=== PATIENT | male | born 1945 | race Caucasian/White ===

== ENCOUNTER 2024-12-01 22:05 | Inpatient (IN) | payer MEDICARE, BC ==
[~2024-12-01] VITALS: Ht 182.9 cm; Wt 74.8 kg
[2024-12-02] MEDS ORDERED: TRIA60LO8 TP (01:31)
[2024-12-02] MEDS ORDERED: ESCI20TA PO (01:31)
[2024-12-02] MEDS ORDERED: SENN8.6T19 PO (01:31)
[2024-12-02] MEDS ORDERED: OLAN5TAB3 PO (01:31)
[2024-12-02] MEDS ORDERED: TAMS-12 PO (01:31)
[2024-12-02] MEDS ORDERED: ACET500C4 PO (01:31)
[2024-12-02] MEDS ORDERED: MELA5TAB25 PO (01:31)
[2024-12-02] MEDS ORDERED: POLY17PO29 PO (01:31)
[2024-12-02 02:07] LABS: BASOPHILS # (AUTO) 0.1 K/uL (0.0-0.2); BASOPHILS % (AUTO) 0.8 % (0.0-2.0); EOSINOPHILS # (AUTO) 0.2 K/uL (0.0-0.7); EOSINOPHILS % (AUTO) 3.3 % (0.0-6.0); HEMATOCRIT 44 % (39-51); HEMOGLOBIN 14.5 g/dL (13.5-17.5); LYMPHOCYTES # (AUTO) 1.9 K/uL (0.8-4.8); LYMPHOCYTES % (AUTO) 25.4 % (20.0-44.0); MEAN CORPUSCULAR HEMOGLOBIN 30 PG (26.0-33.0); MEAN CORPUSCULAR HGB CONC 33 g/dl (31.0-36.0); MEAN CORPUSCULAR VOLUME 89 fL (80-96); MONOCYTES # (AUTO) 0.6 K/uL (0.1-1.30); MONOCYTES % (AUTO) 8.8 % (2.0-12.0); NEUTROPHILS # (AUTO) 4.6 K/uL (1.8-8.9); NEUTROPHILS % (AUTO) 61.7 % (43.0-81.0); PLATELET COUNT (AUTO) 204 K/uL (150-450); RED BLOOD CELL COUNT(AUTO) 4.87 MIL/uL (4.5-6.0); RED CELL DISTRIBUTION WIDTH 13.9 % (11.5-15.0); WHITE BLOOD COUNT (AUTO) 7.4 K/uL (4.3-11.0)
[2024-12-02 02:36] LABS: SERUM AMMONIA 4 umol/L (11-32)
[2024-12-02 02:50] LABS: ALANINE AMINOTRANSFERASE 27 U/L (12-78); ALBUMIN 3.5 g/dL (3.4-5.0); ALKALINE PHOSPHATASE 95 U/L (46-116); ASPARTATE AMINOTRANSFERASE 26 U/L (15-37); BILIRUBIN,TOTAL 0.7 mg/dL (0.2-1.0); CARBON DIOXIDE 23 mmol/L (21-32); CHLORIDE 107 mmol/L (98-107); CREATININE 1.2 mg/dL (0.6-1.3); GLUCOSE 82 mg/dL (74-106); POTASSIUM 3.9 mmol/L (3.5-5.1); SODIUM SERUM 138 mmol/L (136-145); TOTAL PROTEIN, SERUM 7.1 g/dL (6.4-8.2); UREA NITROGEN, BLOOD 25 mg/dL (7-18)
[2024-12-02 02:54] LABS: ACETAMINOPHEN <10 ug/ml (10-30); ALCOHOL, BLOOD < 3 mg/dL (0-10); SALICYLATE < 0.2 mg/dL (2.8-20.0)
[2024-12-02 02:58] LABS: CALCIUM, SERUM 8.9 mg/dL (8.5-10.1)
[2024-12-02 04:02] LABS: APPEARANCE,URINE CLEAR (CLEAR); BILIRUBIN,URINE NEGATIVE (NEGATIVE); BLOOD, URINE NEGATIVE Ery/uL (NEGATIVE); COLOR,URINE YELLOW (YELLOW); KETONES,URINE NEGATIVE (NEGATIVE); LEUKOCYTE ESTERASE ,URINE NEGATIVE (NEGATIVE); NITRITE, URINE NEGATIVE (NEGATIVE); PROTEIN,URINE NEGATIVE (NEGATIVE); UGLUCOSE NEGATIVE (NEGATIVE); UROBILINOGEN,URINE 0.2 EU/dL (0.2)
[2024-12-02 04:14] LABS: AMPHETAMINE, URINE NEGATIVE (NEGATIVE); BARBITURATE, URINE NEGATIVE (NEGATIVE); BENZODIAZEPINE, URINE NEGATIVE (NEGATIVE); CANNABINOID, URINE NEGATIVE (NEGATIVE); COCCAINE, URINE NEGATIVE (NEGATIVE); OPIATE, URINE NEGATIVE (NEGATIVE); PHENCYCLIDINE SCREEN,URINE NEGATIVE (NEGATIVE)
[2024-12-02] MEDS ORDERED: ACET325T53 PO (07:57)
[2024-12-02] MEDS ORDERED: ACET-73 PO (07:57)
[2024-12-02] MEDS ORDERED: MELA5TAB PO (07:57)
[2024-12-02] MEDS ORDERED: MAG HYDROX/AL HYDROX/SIMETH 30 ML UDC PO PRN (09:30)
[2024-12-02] MEDS ORDERED: MAGNESIUM HYDROXIDE 30 ML UDC PO PRN (09:30)
[2024-12-02] MEDS: BLOOD SUGAR DIAGNOSTIC 1 EACH STRIP IN ONE (10:25)
[2024-12-02 16:00] VITALS: BP 116/80; TEMP 98.7; O2SAT 97
[2024-12-02] MEDS: DIVALPROEX SODIUM 125 MG TABLET.DR PO SCH (20:43)
[2024-12-02] MEDS: QUETIAPINE FUMARATE 25 MG TABLET PO SCH (20:43)
[2024-12-02 21:05] VITALS: BP 131/94; TEMP 97.9; O2SAT 100
[2024-12-02] MEDS: ZOLPIDEM TARTRATE 5 MG TABLET PO PRN (22:40)
[2024-12-03] MEDS: QUETIAPINE FUMARATE 25 MG TABLET PO PRN (05:32)
[2024-12-03 08:00] VITALS: BP 91/69; TEMP 98.3; O2SAT 100
[2024-12-03 08:03] LABS: CHOLESTEROL 145 mg/dL (<200); HDL CHOLESTEROL 47 mg/dL (40-60); LDL 87 mg/dL (0-99); TRIGLYCERIDES 70 mg/dL (30-150)
[2024-12-03 08:08] LABS: ALBUMIN 3.7 g/dL (3.4-5.0); CALCIUM, SERUM 9.4 mg/dL (8.5-10.1); CREATININE 1.4 mg/dL (0.6-1.3); POTASSIUM 4.2 mmol/L (3.5-5.1); TOTAL PROTEIN, SERUM 7.3 g/dL (6.4-8.2)
[2024-12-03] MEDS: OLANZAPINE 10 MG VIAL IM STA (08:47)
[2024-12-03 16:00] VITALS: BP 103/73; TEMP 98.1; O2SAT 98
[2024-12-03 20:00] VITALS: BP 107/61; TEMP 97.9; O2SAT 98
[2024-12-03 20:14] VITALS: BP 107/61; TEMP 97.9; O2SAT 98
[2024-12-04] MEDS: ACETAMINOPHEN 325 MG TABLET PO PRN (03:24)
[2024-12-04] MEDS: QUETIAPINE FUMARATE 25 MG TABLET PO SCH (09:48)
[2024-12-04] MEDS: DIVALPROEX SODIUM 125 MG CAP.SPRINK PO SCH (13:53)
[2024-12-04] MEDS ORDERED: DIVALPROEX SODIUM 125 MG TABLET.DR PO SCH (14:00)
[2024-12-04 16:00] VITALS: BP 134/90; TEMP 98; O2SAT 98
[2024-12-04 20:15] VITALS: BP 125/62; TEMP 97.9; O2SAT 97
[2024-12-05 07:09] LABS: BASOPHILS # (AUTO) 0.1 K/uL (0.0-0.2); BASOPHILS % (AUTO) 0.6 % (0.0-2.0); EOSINOPHILS # (AUTO) 0.2 K/uL (0.0-0.7); EOSINOPHILS % (AUTO) 1.9 % (0.0-6.0); HEMATOCRIT 44 % (39-51); HEMOGLOBIN 15.2 g/dL (13.5-17.5); LYMPHOCYTES # (AUTO) 1.4 K/uL (0.8-4.8); LYMPHOCYTES % (AUTO) 18.5 % (20.0-44.0); MEAN CORPUSCULAR HEMOGLOBIN 30 PG (26.0-33.0); MEAN CORPUSCULAR HGB CONC 34 g/dl (31.0-36.0); MEAN CORPUSCULAR VOLUME 87 fL (80-96); MONOCYTES # (AUTO) 0.6 K/uL (0.1-1.30); MONOCYTES % (AUTO) 7.8 % (2.0-12.0); NEUTROPHILS # (AUTO) 5.5 K/uL (1.8-8.9); NEUTROPHILS % (AUTO) 71.2 % (43.0-81.0); PLATELET COUNT (AUTO) 237 K/uL (150-450); RED BLOOD CELL COUNT(AUTO) 5.07 MIL/uL (4.5-6.0); RED CELL DISTRIBUTION WIDTH 14.2 % (11.5-15.0); WHITE BLOOD COUNT (AUTO) 7.8 K/uL (4.3-11.0)
[2024-12-05 07:54] LABS: ALBUMIN 3.8 g/dL (3.4-5.0); BILIRUBIN,TOTAL 0.9 mg/dL (0.2-1.0); CALCIUM, SERUM 9.5 mg/dL (8.5-10.1); CREATININE 1.4 mg/dL (0.6-1.3); MAGNESIUM 2.6 mg/dL (1.8-2.4); PHOSPHORUS 2.8 mg/dL (2.5-4.9); POTASSIUM 4.4 mmol/L (3.5-5.1); TOTAL PROTEIN, SERUM 7.7 g/dL (6.4-8.2)
[2024-12-05 08:00] VITALS: BP 118/97; TEMP 97.8; O2SAT 94
[2024-12-05] MEDS: busPIRone 5 MG TABLET PO SCH (13:44)
[2024-12-05 16:00] VITALS: BP 139/99; TEMP 98; O2SAT 97
[2024-12-06 08:00] VITALS: BP 110/68; TEMP 97.8; O2SAT 98
[2024-12-06 08:07] LABS: PTH, INTACT 34 pg/mL (15-65)
[2024-12-06 16:00] VITALS: BP 150/96; TEMP 98; O2SAT 96
[2024-12-06 20:50] VITALS: BP 137/84; TEMP 98; O2SAT 97
[2024-12-07 08:00] VITALS: BP 102/68; TEMP 97.8; O2SAT 95
[2024-12-07 15:48] VITALS: BP 124/74; TEMP 97.9; O2SAT 98
[2024-12-07 15:50] VITALS: BP 90/60; TEMP 97.9; O2SAT 95
[2024-12-07 20:57] VITALS: BP 101/58; TEMP 97.8; O2SAT 96
[2024-12-08 08:00] VITALS: BP 143/79; TEMP 98.7; O2SAT 98
[2024-12-08] MEDS: OLANZAPINE 10 MG VIAL IM ONE (11:59)
[2024-12-08 15:51] VITALS: BP 104/64; TEMP 97.8; O2SAT 97
[2024-12-08 19:52] VITALS: BP 160/103; TEMP 97.7; O2SAT 98
[2024-12-08] MEDS: QUETIAPINE FUMARATE 25 MG TABLET PO SCH (21:48)
[2024-12-09 08:00] VITALS: BP 98/59; TEMP 97.7; O2SAT 97
[2024-12-09] MEDS: DIVALPROEX SODIUM 125 MG CAP.SPRINK PO SCH (14:26)
[2024-12-09] MEDS: QUETIAPINE FUMARATE 25 MG TABLET PO SCH (14:27)
[2024-12-09 16:00] VITALS: BP 136/98; TEMP 98.6; O2SAT 98
[2024-12-09 20:45] VITALS: BP 132/81; TEMP 98.4; O2SAT 97
[2024-12-10 08:00] VITALS: BP 138/78; TEMP 97.7; O2SAT 97
[2024-12-10 16:00] VITALS: BP 95/66; TEMP 98.7; O2SAT 98
[2024-12-10 20:07] VITALS: BP 116/92; TEMP 98.2; O2SAT 97
[2024-12-11 07:08] LABS: *SPE A/G RATIO 1.2 (0.7-1.7); *SPE ALBUMIN 3.8 g/dL (2.9-4.4); *SPE ALPHA-1-GLOBULIN 0.2 g/dL (0.0-0.4); *SPE ALPHA-2-GLOBULIN 0.7 g/dL (0.4-1.0); *SPE BETA GLOBULIN 1.2 g/dL (0.7-1.3); *SPE GLOBULIN, TOTAL 3.3 g/dL (2.2-3.9); *SPE M-SPIKE Not Observed g/dL (Not Observed); *SPE PROTEIN TOTAL 7.1 g/dL (6.0-8.5); *SPEGAMMA GLOBULIN 1.1 g/dL (0.4-1.8)
[2024-12-11 08:00] VITALS: BP 132/90; TEMP 97.6; O2SAT 95
[2024-12-11 10:39] LABS: BASOPHILS % (AUTO) 0.5 % (0.0-2.0); EOSINOPHILS # (AUTO) 0.1 K/uL (0.0-0.7); EOSINOPHILS % (AUTO) 1.1 % (0.0-6.0); HEMATOCRIT 47 % (39-51); HEMOGLOBIN 15.6 g/dL (13.5-17.5); LYMPHOCYTES # (AUTO) 1.5 K/uL (0.8-4.8); LYMPHOCYTES % (AUTO) 17.3 % (20.0-44.0); MEAN CORPUSCULAR HEMOGLOBIN 29 PG (26.0-33.0); MEAN CORPUSCULAR HGB CONC 33 g/dl (31.0-36.0); MEAN CORPUSCULAR VOLUME 89 fL (80-96); MONOCYTES # (AUTO) 0.6 K/uL (0.1-1.30); MONOCYTES % (AUTO) 7.4 % (2.0-12.0); NEUTROPHILS # (AUTO) 6.5 K/uL (1.8-8.9); NEUTROPHILS % (AUTO) 73.7 % (43.0-81.0); PLATELET COUNT (AUTO) 198 K/uL (150-450); RED BLOOD CELL COUNT(AUTO) 5.33 MIL/uL (4.5-6.0); RED CELL DISTRIBUTION WIDTH 13.9 % (11.5-15.0); WHITE BLOOD COUNT (AUTO) 8.8 K/uL (4.3-11.0)
[2024-12-11 10:45] LABS: ALBUMIN 3.6 g/dL (3.4-5.0); BILIRUBIN,TOTAL 1.3 mg/dL (0.2-1.0); CALCIUM, SERUM 9.9 mg/dL (8.5-10.1); CREATININE 1.4 mg/dL (0.6-1.3); MAGNESIUM 2.8 mg/dL (1.8-2.4); PHOSPHORUS 2.7 mg/dL (2.5-4.9); POTASSIUM 4.4 mmol/L (3.5-5.1); TOTAL PROTEIN, SERUM 7.8 g/dL (6.4-8.2)
[2024-12-11 16:00] VITALS: BP 109/94; TEMP 98; O2SAT 98
[2024-12-11 20:00] VITALS: BP 129/89; TEMP 97.7; O2SAT 96
[2024-12-12 08:00] VITALS: BP 136/93; TEMP 97.8; O2SAT 96
[2024-12-12] MEDS: BENZTROPINE MESYLATE (1 MG) 1 MG TABLET PO SCH (14:30)
[2024-12-12 16:00] VITALS: BP 130/74; TEMP 97.8; O2SAT 96
[2024-12-12 20:14] VITALS: BP 110/73; TEMP 97.8; O2SAT 96
[2024-12-13 08:00] VITALS: BP 150/94; TEMP 97.8; O2SAT 94
[2024-12-13 16:00] VITALS: BP 111/73; TEMP 97.9; O2SAT 97
[2024-12-13 20:10] VITALS: BP 114/93; TEMP 97.8; O2SAT 97
[2024-12-14 08:00] VITALS: BP 109/86; TEMP 98.8; O2SAT 94
[2024-12-14] MEDS: DIVALPROEX SODIUM 125 MG CAP.SPRINK PO SCH (14:00)
[2024-12-14 16:00] VITALS: BP 128/76; TEMP 98; O2SAT 95
[2024-12-14 21:04] VITALS: BP 122/91; TEMP 97.7; O2SAT 96
[2024-12-15 07:36] LABS: BASOPHILS % (AUTO) 0.4 % (0.0-2.0); EOSINOPHILS % (AUTO) 0.7 % (0.0-6.0); HEMATOCRIT 47 % (39-51); HEMOGLOBIN 15.7 g/dL (13.5-17.5); LYMPHOCYTES # (AUTO) 0.7 K/uL (0.8-4.8); LYMPHOCYTES % (AUTO) 12.5 % (20.0-44.0); MEAN CORPUSCULAR HEMOGLOBIN 30 PG (26.0-33.0); MEAN CORPUSCULAR HGB CONC 33 g/dl (31.0-36.0); MEAN CORPUSCULAR VOLUME 89 fL (80-96); MONOCYTES # (AUTO) 0.6 K/uL (0.1-1.30); MONOCYTES % (AUTO) 10.5 % (2.0-12.0); NEUTROPHILS # (AUTO) 4.3 K/uL (1.8-8.9); NEUTROPHILS % (AUTO) 75.9 % (43.0-81.0); PLATELET COUNT (AUTO) 169 K/uL (150-450); RED BLOOD CELL COUNT(AUTO) 5.28 MIL/uL (4.5-6.0); RED CELL DISTRIBUTION WIDTH 14.3 % (11.5-15.0); WHITE BLOOD COUNT (AUTO) 5.6 K/uL (4.3-11.0)
[2024-12-15 08:00] VITALS: BP 120/68; TEMP 97.9; O2SAT 98
[2024-12-15 08:12] LABS: ALBUMIN 3.2 g/dL (3.4-5.0); BILIRUBIN,TOTAL 0.7 mg/dL (0.2-1.0); CALCIUM, SERUM 9.3 mg/dL (8.5-10.1); CREATININE 1.7 mg/dL (0.6-1.3); PHOSPHORUS 3.9 mg/dL (2.5-4.9); POTASSIUM 3.9 mmol/L (3.5-5.1); TOTAL PROTEIN, SERUM 7.2 g/dL (6.4-8.2)
[2024-12-15] MEDS: IV D5W 1,000 ML IV ONE (14:23)
[2024-12-15 16:00] VITALS: BP 142/100; TEMP 98.1; O2SAT 97
[2024-12-15 20:08] VITALS: BP 112/88; TEMP 98; O2SAT 98
[2024-12-16] MEDS ORDERED: DIVA125C5 PO (09:19)
[2024-12-16] MEDS ORDERED: MAG30ORA PO (09:19)
[2024-12-16] MEDS ORDERED: QUET25TA PO ×2 (09:19)
[2024-12-16] MEDS ORDERED: BUSP5TAB3 PO (09:19)
[2024-12-16] MEDS ORDERED: MAGN400O6 PO (09:19)
[2024-12-16] MEDS ORDERED: BENZ0.5T43 PO (09:19)
== END 2024-12-15 22:02 | DRG 885 ==
LOC: ER 22:09 → GPS 12-02 04:51
PROVIDERS: ADMIT Psychiatry & Neurology Psychiatry; ATTEND Nurse Practitioner Acute Care
DX: F39 Unspecified mood [affective] disorder (principal); N18.9 Chronic kidney disease, unspecified; N17.0 Acute kidney failure with tubular necrosis; F03.93 Unspecified dementia, unspecified severity, with mood disturbance; F03.94 Unspecified dementia, unspecified severity, with anxiety; G93.49 Other encephalopathy; E87.0 Hyperosmolality and hypernatremia; F29 Unspecified psychosis not due to a substance or known physiological condition; F03.90 Unspecified dementia, unspecified severity, without behavioral disturbance, psychotic disturbance, mood disturbance, and anxiety; I10 Essential (primary) hypertension; N40.0 Benign prostatic hyperplasia without lower urinary tract symptoms; Z79.899 Other long term (current) drug therapy; F20.9 Schizophrenia, unspecified; Z73.6 Limitation of activities due to disability; F32.A Depression, unspecified; R79.89 Other specified abnormal findings of blood chemistry; R26.9 Unspecified abnormalities of gait and mobility; I12.9 Hypertensive chronic kidney disease with stage 1 through stage 4 chronic kidney disease, or unspecified chronic kidney disease; M89.8X9 Other specified disorders of bone, unspecified site; E86.0 Dehydration; Z82.0 Family history of epilepsy and other diseases of the nervous system; Z87.828 Personal history of other (healed) physical injury and trauma; E86.9 Volume depletion, unspecified
CPT/HCPCS: 36415; 70450-TC; 80053-TC; 80061-TC; 80164-TC; 82140-TC; 82550-TC; 82962-TC; 83735-TC; 83970; 84100-TC; 84155; 84165; 85025-TC; 87081-TC; 97110-TC; 97116-TC; 97530-TC; A4223; G0480; J3490; J7070

== ENCOUNTER 2024-12-15 20:03 | Inpatient (IN) | payer MEDICARE, BC ==
[~2024-12-15] VITALS: Ht 182.9 cm; Wt 70.5 kg
[~2024-12-15 20:03] MED LIST: ACET-73 PO; ACET325T53 PO; ACET500C4 PO; ESCI20TA PO; MELA5TAB PO; MELA5TAB25 PO; OLAN5TAB3 PO; POLY17PO29 PO; SENN8.6T19 PO; TAMS-12 PO; TRIA60LO8 TP
[2024-12-15 21:30] VITALS: BP 125/78; TEMP 97.9; O2SAT 99
[2024-12-15] MEDS ORDERED: Z GUARD REMEDY 4 OZ OINT TP PRN (22:30)
[2024-12-15] MEDS ORDERED: SENNOSIDES 8.6 MG TABLET PO PRN (22:30)
[2024-12-15] MEDS ORDERED: MAG HYDROX/AL HYDROX/SIMETH 30 ML UDC PO PRN (22:30)
[2024-12-15] MEDS ORDERED: MAGNESIUM HYDROXIDE 30 ML UDC PO PRN (22:30)
[2024-12-15] MEDS ORDERED: ACETAMINOPHEN 325 MG TABLET PO PRN (22:30)
[2024-12-15] MEDS ORDERED: ONDANSETRON HCL/PF 4 MG/2 ML VIAL IVP PRN (22:30)
[2024-12-15] MEDS: IV D5W 1,000 ML IV PRN (23:48)
[2024-12-16 05:07] LABS: APPEARANCE,URINE CLOUDY (CLEAR); BILIRUBIN,URINE NEGATIVE (NEGATIVE); BLOOD, URINE NEGATIVE Ery/uL (NEGATIVE); COLOR,URINE YELLOW (YELLOW); KETONES,URINE TRACE mg/dL (NEGATIVE); LEUKOCYTE ESTERASE ,URINE NEGATIVE (NEGATIVE); NITRITE, URINE NEGATIVE (NEGATIVE); PH,URINE 5.5 (5.0-8.0); PROTEIN,URINE NEGATIVE (NEGATIVE); UGLUCOSE NEGATIVE (NEGATIVE)
[2024-12-16 05:20] LABS: BACTERIA,URINE Many /HPF (None Seen)
[2024-12-16 05:21] LABS: ADD URINE CULTURE YES; RBC,URINE 0-2 /HPF (0-2)
[2024-12-16 05:22] LABS: SQUAMOUS EPITHELIAL CELL,UR Few /HPF (None Seen)
[2024-12-16 07:58] LABS: BASOPHILS % (AUTO) 0.4 % (0.0-2.0); EOSINOPHILS # (AUTO) 0.1 K/uL (0.0-0.7); EOSINOPHILS % (AUTO) 0.9 % (0.0-6.0); HEMATOCRIT 46 % (39-51); HEMOGLOBIN 15.3 g/dL (13.5-17.5); LYMPHOCYTES # (AUTO) 1.1 K/uL (0.8-4.8); LYMPHOCYTES % (AUTO) 16.4 % (20.0-44.0); MEAN CORPUSCULAR HEMOGLOBIN 30 PG (26.0-33.0); MEAN CORPUSCULAR HGB CONC 34 g/dl (31.0-36.0); MEAN CORPUSCULAR VOLUME 89 fL (80-96); MONOCYTES # (AUTO) 0.8 K/uL (0.1-1.30); MONOCYTES % (AUTO) 11.7 % (2.0-12.0); NEUTROPHILS # (AUTO) 4.9 K/uL (1.8-8.9); NEUTROPHILS % (AUTO) 70.6 % (43.0-81.0); PLATELET COUNT (AUTO) 161 K/uL (150-450); RED BLOOD CELL COUNT(AUTO) 5.13 MIL/uL (4.5-6.0); WHITE BLOOD COUNT (AUTO) 6.9 K/uL (4.3-11.0)
[2024-12-16 08:00] VITALS: BP 119/76; TEMP 98.2; O2SAT 94
[2024-12-16 08:32] LABS: CREATININE 1.9 mg/dL (0.6-1.3); MAGNESIUM 2.9 mg/dL (1.8-2.4); PHOSPHORUS 3.5 mg/dL (2.5-4.9); POTASSIUM 3.8 mmol/L (3.5-5.1)
[2024-12-16] MEDS ORDERED: MAG30ORA PO (09:19)
[2024-12-16] MEDS ORDERED: DIVA125C5 PO (09:19)
[2024-12-16] MEDS ORDERED: BENZ0.5T43 PO (09:19)
[2024-12-16] MEDS ORDERED: MAGN400O6 PO (09:19)
[2024-12-16] MEDS ORDERED: QUET25TA PO ×2 (09:19)
[2024-12-16] MEDS ORDERED: BUSP5TAB3 PO (09:19)
[2024-12-16] MEDS: POLYETHYLENE GLYCOL 3350 17 GM POWD.PACK PO SCH (09:37)
[2024-12-16] MEDS: QUETIAPINE FUMARATE 25 MG TABLET PO SCH ×2 (14:44→21:47)
[2024-12-16] MEDS: DIVALPROEX SODIUM 125 MG CAP.SPRINK PO SCH (14:45)
[2024-12-16] MEDS: CEFTRIAXONE 1 G in IV D5W 50 ML IV SCH (14:46)
[2024-12-16] MEDS: AMMONIUM LACTATE 227 GM BOTTLE TP SCH (17:25)
[2024-12-16 18:00] VITALS: BP 136/86; TEMP 98.1; O2SAT 94
[2024-12-16 20:00] VITALS: BP 126/79; TEMP 98.2; O2SAT 97
[2024-12-16] MEDS: OLANZAPINE 10 MG VIAL IM ONE (20:41)
[2024-12-16] MEDS: TAMSULOSIN 0.4 MG CAP.SR.24H PO SCH (21:47)
[2024-12-16] MEDS ORDERED: OLANZAPINE 5 MG TABLET PO SCH (22:00)
[2024-12-16] MEDS ORDERED: Medication Not On Formulary EA (Melatonin 5 MG) PO SCH (22:00)
[2024-12-16] MEDS ORDERED: ESCITALOPRAM OXALATE (10 MG) 10 MG TABLET PO SCH (22:00)
[2024-12-16] MEDS ORDERED: MORPHINE SULFATE INJ 2 MG/ML DISP.SYRIN IV PRN (23:00)
[2024-12-17 07:11] LABS: BASOPHILS % (AUTO) 0.5 % (0.0-2.0); EOSINOPHILS # (AUTO) 0.1 K/uL (0.0-0.7); HEMATOCRIT 47 % (39-51); HEMOGLOBIN 15.2 g/dL (13.5-17.5); LYMPHOCYTES # (AUTO) 1.3 K/uL (0.8-4.8); MEAN CORPUSCULAR HEMOGLOBIN 29 PG (26.0-33.0); MEAN CORPUSCULAR HGB CONC 32 g/dl (31.0-36.0); MEAN CORPUSCULAR VOLUME 90 fL (80-96); MONOCYTES # (AUTO) 0.8 K/uL (0.1-1.30); MONOCYTES % (AUTO) 12.4 % (2.0-12.0); NEUTROPHILS # (AUTO) 4.4 K/uL (1.8-8.9); NEUTROPHILS % (AUTO) 66.1 % (43.0-81.0); PLATELET COUNT (AUTO) 154 K/uL (150-450); RED BLOOD CELL COUNT(AUTO) 5.25 MIL/uL (4.5-6.0); RED CELL DISTRIBUTION WIDTH 13.7 % (11.5-15.0); WHITE BLOOD COUNT (AUTO) 6.6 K/uL (4.3-11.0)
[2024-12-17 07:20] LABS: CALCIUM, SERUM 8.9 mg/dL (8.5-10.1); CREATININE 1.8 mg/dL (0.6-1.3); MAGNESIUM 2.7 mg/dL (1.8-2.4); PHOSPHORUS 3.6 mg/dL (2.5-4.9); POTASSIUM 3.6 mmol/L (3.5-5.1)
[2024-12-17 08:00] VITALS: BP 132/88; TEMP 98; O2SAT 98
[2024-12-17] MEDS: LORAZEPAM INJ 2 MG/ML VIAL IV PRN (14:15)
[2024-12-17 16:00] VITALS: BP 136/86; TEMP 97.6; O2SAT 97
[2024-12-18 00:27] VITALS: BP 140/86; TEMP 97.6; O2SAT 97
[2024-12-18 03:02] VITALS: BP 128/80; TEMP 98.2; O2SAT 99
[2024-12-18] MEDS ORDERED: FENTANYL TD PATCH (50 MCG/HR) 50 MCG/HR PATCH.TD72 TD SCH (12:00)
[2024-12-18] MEDS: FENTANYL TD PATCH (25 MCG/HR) 25 MCG/HR PATCH.TD72 TD SCH (13:49)
[2024-12-18] MEDS: SCOPOLAMINE PATCH 1 MG/72HR TD SCH (14:52)
== END 2024-12-18 17:15 | DRG 640 ==
LOC: MED 20:03
PROVIDERS: ADMIT Nurse Practitioner Acute Care; ATTEND Nurse Practitioner Family
DX: E86.0 Dehydration (principal); G92.8 Other toxic encephalopathy; N17.0 Acute kidney failure with tubular necrosis; F03.93 Unspecified dementia, unspecified severity, with mood disturbance; N39.0 Urinary tract infection, site not specified; F03.92 Unspecified dementia, unspecified severity, with psychotic disturbance; E44.0 Moderate protein-calorie malnutrition; E86.9 Volume depletion, unspecified; E87.0 Hyperosmolality and hypernatremia; R62.7 Adult failure to thrive; E88.09 Other disorders of plasma-protein metabolism, not elsewhere classified; F20.9 Schizophrenia, unspecified; N40.0 Benign prostatic hyperplasia without lower urinary tract symptoms; Z73.6 Limitation of activities due to disability; F29 Unspecified psychosis not due to a substance or known physiological condition; F39 Unspecified mood [affective] disorder; M89.8X9 Other specified disorders of bone, unspecified site; Z51.5 Encounter for palliative care; Z66 Do not resuscitate; Z78.1 Physical restraint status; B96.89 Other specified bacterial agents as the cause of diseases classified elsewhere; E86.1 Hypovolemia; L30.9 Dermatitis, unspecified; L60.3 Nail dystrophy; N18.9 Chronic kidney disease, unspecified; Z79.899 Other long term (current) drug therapy
CPT/HCPCS: 36415; 71045-TC; 80048-TC; 81001; 83735-TC; 84100-TC; 85025-TC; 92526; 92611-TC; A4223; G0378; J0696; J2060; J3490; J7060; J7070